=== PATIENT | male | born 1955 | race Caucasian/White ===

== ENCOUNTER → 2018-07-15 | Outpatient (CLI) | payer BC ==
--- NOTE | 2018-07-15 17:24 | RAD ---
Right wrist radiograph 07/15/2018 12:00 AM INDICATION: Right wrist fracture COMPARISON: Right wrist radiograph June 21, 2018 TECHNIQUE: 4 views of the right wrist are provided. FINDINGS: Overlying cast material limits fine osseous detail. Postoperative changes are identified from the volar plate and screw fixation of a distal radial fracture. There is a persistent mildly displaced ulnar styloid fracture. There is improved alignment of the fracture fragments of the distal radius. Evaluation of new bone formation is limited by overlapping material. Lateral view with minimal new bone formation. IMPRESSION: Volar plate and screw fixation of a distal radial fracture with improved alignment and minimal new bone formation. Persistent fracture lines are visualized. There is a persistent mildly displaced ulnar styloid process fracture. Electronically signed by: Tiarra Gomes MD (07/15/2018 5:20 PM) [id number]
== END | disposition home or self-care (01) ==
LOC: DXRAD 15:21
PROVIDERS: ATTEND Orthopaedic Surgery Sports Medicine
DX: S52.591D Other fractures of lower end of right radius, subsequent encounter for closed fracture with routine healing (principal); S52.611D Displaced fracture of right ulna styloid process, subsequent encounter for closed fracture with routine healing; X58.XXXD Exposure to other specified factors, subsequent encounter
CPT/HCPCS: 73110

== ENCOUNTER → 2018-08-14 | Outpatient (CLI) | payer BC ==
--- NOTE | 2018-08-14 16:34 | RAD ---
EXAM: PA, oblique and lateral views of the right wrist DATE: 08/14/2018 12:00 AM INDICATION: FOLLOW UP WRIST SURGERY COMPARISON: 07/15/2018 FINDINGS: Molar screw plate fixation of the comminuted distal radial fracture is in good alignment without definite hardware complication. Fracture planes are less conspicuous suggesting progressive healing. Diffusely decreased bone mineral density. Neutral ulnar variance. Neutral radial tilt. Mild thumb CMC and triscaphe joint degenerative changes are seen. IMPRESSION: Progressive healing distal radial fracture post reduction and fixation, in stable alignment without hardware application. Electronically signed by: Andrew Alonso MD (08/14/2018 4:31 PM) [id number]
== END | disposition home or self-care (01) ==
LOC: DXRAD 13:49
PROVIDERS: ATTEND Orthopaedic Surgery Sports Medicine
DX: Z47.89 Encounter for other orthopedic aftercare (principal); S52.591D Other fractures of lower end of right radius, subsequent encounter for closed fracture with routine healing; M19.041 Primary osteoarthritis, right hand; Z98.1 Arthrodesis status; X58.XXXD Exposure to other specified factors, subsequent encounter
CPT/HCPCS: 73110

== ENCOUNTER → 2018-09-19 | Outpatient (CLI) | payer BC ==
--- NOTE | 2018-09-19 17:43 | RAD ---
EXAM: PA, oblique and lateral views of the right wrist DATE: 09/19/2018 12:00 AM INDICATION: FOLLOW UP RIGHT WRIST SURGERY COMPARISON: No Prior FINDINGS: Volar plate and screw fixation of the distal radial fracture in stable alignment without interval hardware complication. Subtle periosteal reaction is seen with sclerosis of the fracture plane suggesting progressive healing. Degenerative changes most prominent in the midcarpal joint are stable. There is subtle sclerosis through the scaphoid waist, equivocal for scaphoid fracture. IMPRESSION: 1. Progressively healing distal radial fracture, post reduction and fixation, in stable alignment without interval hardware complication. 2. Subtle transverse sclerosis of the scaphoid waist may represent nondisplaced scaphoid fracture or be artifactual from associated volar ossicles. Electronically signed by: Andrew Alonso MD (09/19/2018 5:39 PM) [facility]
== END | disposition home or self-care (01) ==
LOC: RAD 09:29
PROVIDERS: ATTEND Orthopaedic Surgery Sports Medicine
DX: S52.571D Other intraarticular fracture of lower end of right radius, subsequent encounter for closed fracture with routine healing (principal); X58.XXXD Exposure to other specified factors, subsequent encounter
CPT/HCPCS: 73110

== ENCOUNTER → 2018-12-26 | Outpatient (CLI) | payer BC ==
--- NOTE | 2018-12-26 15:04 | RAD ---
Right wrist, 3 views, 12/26/2018: HISTORY: Follow-up wrist fracture Comparison is made to a study from 09/19/2018. The bony structures are demineralized. The internally fixed distal radial fracture is unchanged in position. There has been further interval healing with solid bony bridging and loss of definition of the majority of the fracture lines. The ulnar styloid fracture is healed. There are mild degenerative changes at the wrist. No new bony abnormality is detected. IMPRESSION: Stable, healed distal radial fracture. Electronically signed by: Antonio Rapp MD (12/26/2018 3:01 PM) [facility]
== END | disposition home or self-care (01) ==
LOC: RAD 11:21
PROVIDERS: ATTEND Orthopaedic Surgery Sports Medicine
DX: S52.571D Other intraarticular fracture of lower end of right radius, subsequent encounter for closed fracture with routine healing (principal); M19.031 Primary osteoarthritis, right wrist; X58.XXXD Exposure to other specified factors, subsequent encounter
CPT/HCPCS: 73110

== ENCOUNTER → 2019-05-01 | Outpatient (CLI) | payer BC | END | disposition home or self-care (01) | LOC: LAB 13:09 | PROVIDERS: ATTEND Internal Medicine Cardiovascular Disease | DX: E78.00 Pure hypercholesterolemia, unspecified (principal) | CPT/HCPCS: 80061 ==

== ENCOUNTER → 2019-06-15 | Outpatient (CLI) | payer BC ==
--- NOTE | 2019-06-15 16:08 | RAD ---
Three-view right wrist study Clinical indications: Right wrist pain. Follow-up of fracture. COMPARISON: December 26, 2018. FINDINGS: Again seen is anterior surgical plate and multiple screws within the distal right radius which is unchanged in position. Old healed fracture of the distal right radius is seen. No acute-appearing fracture is evident. No lytic process is seen. Old healed fracture of the distal ulnar styloid process is seen. Radial carpal articulation is maintained. Mild primary degenerative osteoarthritis and spurring of the radial scaphoid joint and the scaphoid trapezium joint and the first carpal metacarpal joint is seen. IMPRESSION: Old healed distal right radial fracture and ulnar styloid process fracture. No acute osseous abnormality. Electronically signed by: Minh Matamoros MD (06/15/2019 4:05 PM) [place] [id number]
== END | disposition home or self-care (01) ==
LOC: DXRAD 11:23
PROVIDERS: ATTEND Orthopaedic Surgery Sports Medicine
DX: S52.571D Other intraarticular fracture of lower end of right radius, subsequent encounter for closed fracture with routine healing (principal); M19.031 Primary osteoarthritis, right wrist; M19.041 Primary osteoarthritis, right hand; X58.XXXD Exposure to other specified factors, subsequent encounter
CPT/HCPCS: 73110

== ENCOUNTER → 2020-09-01 | Outpatient (CLI) | payer MEDICARE ==
--- NOTE | 2020-09-01 15:35 | RAD ---
EXAM: WRIST 3V RIGHT. HISTORY: Right wrist pain. Fracture fixation. COMPARISON: 06/15/2019. FINDINGS: A chronic healed distal radial fracture is fixed by a volar plate fixed by screws. An ulnar styloid fracture is also healed. Alignment is as expected. Radiocarpal osteoarthritis is mild. It is also mild at the first carpometacarpal and triscaphe articulations. Small loose bodies are suspected within the anterior aspect of the radiocarpal joint. IMPRESSION: 1. Chronic healed fractures of the distal radius and ulna. 2. Mild first carpometacarpal, triscaphe and radiocarpal osteoarthritis. Electronically signed by: Matthew Lebron MD (09/01/2020 3:33 PM) [id number]
== END ==
LOC: DXRAD 13:16
PROVIDERS: ATTEND Physician Assistant
DX: M19.031 Primary osteoarthritis, right wrist (principal)
CPT/HCPCS: 73110